=== PATIENT | female | born 1940 | race Caucasian/White ===

== ENCOUNTER 2016-12-08 11:59 | Observation (INO) | payer MEDICARE ==
[~2016-12-08] VITALS: Ht 175.3 cm; Wt 88.4 kg
[~2016-12-08 11:59] MED LIST: ASPI-973 PO; CALCIO DEL MAR; CHOL10008 PO; FISH OIL 500 M1 EAC2 PO; MULT-1018 PO; TRAZ150T72 PO; TRIA0.1220 PO; VALS1TAB5 PO
[2016-12-08 12:05] VITALS: BP 156/96; PULSE 88; RESP 16; O2SAT 96
[2016-12-08] MEDS ORDERED: CALC600T12 PO (12:09)
--- NOTE | 2016-12-08 12:26 | ED.REPORT ---
HPI-Extremity Problem Lower Date of Service Dec 08, 2016 ED Provider: Jossue Dinh PA-C Bing is an otherwise healthy 76-year-old female presenting to the emergency department with chief complaint of a blood clot in her left leg. Patient reports a one-week history of swelling in her left lower extremity. She discussed this with her primary care provider who ordered an ultrasound which was positive for DVT. She reports a two-week history of upper respiratory symptoms including cough, rhinorrhea, dyspnea with exertion which is resolving. Denies hemoptysis, chest pain, palpitations, loss of consciousness, fever, chills. Denies history of stroke, intracranial bleeding. Nursing Notes Stated Complaint: BLOD CLOT LT LEG Chief Complaint: Extremity Trauma Nursing Notes Reviewed: Yes Allergies: Coded Allergies: No Known Allergies (Unverified , 12/08/16) Scheduled Aspirin (Aspirin) 81 Mg Tablet 81 MG PO DAILY Calcium Carbonate (Calcium) 600 Mg Tablet 1,200 MG PO DAILY Cholecalciferol (Vitamin D3) (Vitamin D3) 1,000 Unit Tab.chew 1,000 UNIT PO DAILY Multivitamin (Multi Vitamin Daily) 1 Each Tablet 1 EACH PO DAILY [place] Oil/[place]-3 Fatty Acids (Fish Oil 500 mg Softgel) 1 Each Capsule 1 EACH PO DAILY Valsartan/Hydrochlorothiazide (Diovan Hct 160-12.5 mg Tab) 1 Each Tablet 1 EACH PO BID General Time Seen by MD: 12:15 Chief Complaint Other (left leg DVT) Past Medical History Past Medical History Denies Smoking History Former Smoker Review of Systems Review of Systems Note: Negative unless stated otherwise in history of present illness Physical Exam General: Well appearing, well developed, well nourished, no acute distress. Left le+ pitting edema to the knee. Diameter notably greater than right. DP and PT pulses are not palpated. Foot is warm, capillary refill <3 seconds in distal phalanges. Head: Atraumatic, normocephalic. Eyes: No scleral icterus or injection. No discharge. Vision grossly intact. ENT: Voice clear, hearing grossly intact. Respiratory: Regular rate and rhythm. Breath sounds present, clear to auscultation and equal bilaterally. No respiratory distress. No increased work of breathing, speaks in complete sentences. Cardiovascular: Regular rate and rhythm, without murmur, gallop or rub. Skin: Warm and dry. Neurological: Grossly nonfocal. Psychological: Alert and oriented. Speech appropriate, linear and logical. Behavior appropriate. Initial Vital Signs Vital Signs (First) Date Time Temp Pulse Resp B/P Pulse Ox O2 Delivery O2 Flow Rate FiO2 12/08/16 12:05 36.4 88 16 156/96 96 Room Air Interpretation & Diagnostics Interpretation & Diagnostics: PROCEDURE: CT ANGIO CHEST PULMONARY EMBOLISM ([id number]) INDICATIONS: DVT, shortness of breath IMPRESSION: 1. Bilateral pulmonary emboli, most prominent in the left lower lobe, without definite evidence of right heart strain of this time. 2. Peripheral areas of consolidation in the left lower lobe suggestive of developing pulmonary infarcts given the associated filling defects within these vascular territories. Small peripheral areas of nonspecific consolidation are also noted in the left lingula which may represent infarcts, infection, or atelectasis. Lab Results Interpretation Result Diagram: 12/08/16 1310 12/08/16 1310 Test 12/08/16 13:10 White Blood Count 11.4th/mm3 (3.8-10.1) Red Blood Count 4.62mil/mm3 (3.90-5.20) Hemoglobin 13.1g/dL (12.0-15.6) Hematocrit 39.6% (35.0-46.0) Mean Corpuscular Volume 85.7fL (81-100) Mean Corpuscular Hemoglobin 28.4pg (27.0-35.0) Mean Corpuscular Hemoglobin Concent 33.1% (32.0-37.0) Red Cell Distribution Width 14.2% (12.3-15.4) Platelet Count 526bil/L (150-400) Prothrombin Time 10.0sec (8.1-12.5) Prothromb Time International Ratio 0.94ratio Sodium Level 135mEq/L (134-144) Potassium Level 3.8mEq/L (3.5-5.2) Chloride Level 95mEq/L (97-108) Carbon Dioxide Level 26mmol/L (18-29) Blood Urea Nitrogen 21mg/dL (8-27) Creatinine 1.09mg/dL (0.57-1.00) Estimat Glomerular Filtration Rate 70mL/min (>59) Glucose Level 91mg/dL (60-99) Calcium Level 9.8mg/dL (8.5-10.1) Total Bilirubin 0.5mg/dL (0.0-1.2) Aspartate Amino Transf (AST/SGOT) 25U/L (0-50) Alanine Aminotransferase (ALT/SGPT) 31U/L (0-32) Alkaline Phosphatase 151U/L (25-165) Total Protein 7.9g/dL (6.4-8.4) Albumin 4.0g/dL (3.4-5.0) US Soft Tissue/Musculoskeletal PROCEDURE: US VEINOUS LEG DUPLEX UNILATERAL, LEFT INDICATIONS: LLE VENOUS SWELLING IMPRESSION: Occlusive DVT of the left lower extremity. Exam Performed by: Radiologist Re-Eval/Medical Decision Med Decision/Clinical Course Otherwise healthy 76-year-old female resents after being diagnosed with a DVT in her left lower extremity on ultrasound at the urgent care. Patient reports a one-week history of leg swelling. Patient additionally reports a two-week history of upper respiratory symptoms including nasal congestion, rhinorrhea, cough, MARTINEZ. Reports feeling short of breath walking to the emergency department. Physical examination reveals a notably swollen left leg. PT and DP pulses are not palpated, however the foot is warm with brisk capillary refill. Vital signs are normal. I discussed the case with Dr. Garza, who recommends CT angio chest to rule out PE. Her Wells score is 3. Patient is given Lovenox 1 mg/kg, warfarin [address] returned positive for pulmonary emboli bilaterally. I discussed the case with Dr. Ellington, who accepts admission. Patient is transferred to the floor in stable condition. Consultation : Referral / Consult Name: Roula Ellington MD Call Returned at: 15:53 Boatswain Mate: Accepts admit Discharge & Departure Impression: Primary Impression: Pulmonary emboli Pulmonary embolism type: other Chronicity: acute Acute cor pulmonale presence: without acute cor pulmonale Qualified Code: I26.99 - Other pulmonary embolism without acute cor pulmonale Additional Impression: Left leg DVT Affected thrombotic vein of extremity: unspecified vein of extremity Chronicity: acute Qualified Code: I82.402 - Acute embolism and thrombosis of unspecified deep veins of left lower extremity Disposition: ADMITTED TO HOSPITAL Referrals: Rafal Godwin DO (PCP) EDSupervising Provider for APC: Martin Garza MD, Seth PA-C Dec 08, 2016 12:26
[2016-12-08 13:29] LABS: Mean Corpuscular Hemoglobin 28.4 pg (27.0-35.0); Mean Corpuscular Volume 85.7 fL (81-100)
--- NOTE | 2016-12-08 15:26 | DRSVH ---
PROCEDURE: CT ANGIO CHEST PULMONARY EMBOLISM ([id number]) INDICATIONS: DVT, shortness of breath TECHNIQUE: After the administration of intravenous contrast, 2 mm thick sections acquired from the pulmonary api aidee to the posterior costophrenic angles. 3-dimensional maximum intensity projection (MIP) coronal a nd sagittal reformats were then acquired through the thorax. For radiation dose reduction, the follo wing was used: automated exposure control, adjustment of mA and/or kV according to patient size. COMPARISON: None. FINDINGS: Image quality: Excellent. Pulmonary arteries: There are multiple bilateral filling defects consistent with pulmonary embolism. These include thrombus within the left main pulmonary artery distally extending into shoes segmenta l and subsegmental branches in the upper and lower lobes, most prominent in the left lower lobe. The re is also segmental and subsegmental nonocclusive thrombus within the right upper, middle, and lower lobes. There is borderline enlargement of the main pulmonary artery. No definite leftward septal d eviation. Lungs and pleura: There are peripheral areas of consolidation in the left lower lobe corresponding t o the distribution of pulmonary emboli suggestive of developing pulmonary infarcts. There are also s mall areas of nonspecific peripheral consolidation in the left lingula. Bilateral dependent atelecta sis is present. There are bilateral groundglass opacities also noted with mild septal thickening sug gesting mild edema. There is a minimal left pleural effusion. No pneumothorax. Central and periphe ral airways are patent. Mediastinum: Heart size is enlarged, without pericardial effusion. There is coronary arterial vascu lar calcification. No mediastinal or hilar adenopathy. Thoracic aorta is normal in caliber and enha ncement. Esophagus is normal in caliber, without hiatal hernia. Bones and chest wall: No suspicious bony lesions. Ribs and thoracic spine appear intact throughout. No axillary or supraclavicular adenopathy. Abdomen: Visualized upper abdomen demonstrates colonic diverticulosis. IMPRESSION: 1. Bilateral pulmonary emboli, most prominent in the left lower lobe, without definite evidence of r ight heart strain of this time. 2. Peripheral areas of consolidation in the left lower lobe suggestive of developing pulmonary infar cts given the associated filling defects within these vascular territories. Small peripheral areas o f nonspecific consolidation are also noted in the left lingula which may represent infarcts, infectio n, or atelectasis. Findings discussed with Shellie Ramos on 12/08/16 at 3:15 PM. Dictated by: Rafal Astudillo M.D. on 12/08/2016 at 15:07 Approved by: Rafal Astudillo M.D. on 12/08/2016 at 15:24
[2016-12-08] MEDS ORDERED: Polyethylene Glycol (PEG) 17 Gm Powder PO PRN (16:05)
[2016-12-08] MEDS ORDERED: Alum-Mag Hydrox-Simeth 30 mL Suspension PO PRN (16:05)
[2016-12-08] MEDS ORDERED: Ondansetron 2 mg/mL 2 mL Inj IVPUSH PRN (16:05)
--- NOTE | 2016-12-08 16:16 | PCM.HPMED ---
Subjective Date of Service Dec 08, 2016 Primary Provider: Admitting Physician: Primary Care Physician: Rafal Godwin DO Attending Physician: Admit Status: From the Emergency Department, Remote Telemetry Chief Complaint: Left leg swelling with increased shortness of breath History of Present Illness: 76-year-old female who presents with one-week history of increasing left lower leg swelling. She does note that about 2-1/2 weeks ago she had upper respiratory infection in thought she was fairly mobile but only stayed around the house and did not do her usual activities at that time. She called her primary care provider [facility] in to urgent care here at [facility]. Ultrasound was done as an outpatient and was positive for occlusive DVT of left lower extremity. There is intraluminal filling defects involving the common femoral vein, femoral vein and popliteal vein. Femoral vein and popliteal veins are occluded. In the emergency room they did do a CTA of chest because of her increased shortness of breath and this revealed bilateral pulmonary emboli most prominent left lower lobe. There was no definite evidence of right heart strain. She has no prior history of blood clot disorders. There is no family history of blood clotting disorders.. Review of Systems: Patient denies any chest pain, denies any nausea or vomiting. Denies any alteration in bowel movements. Denies any fevers chills or cough. All other review of systems are reviewed and are negative except for as in history of present illness. Allergies Coded Allergies: No Known Allergies (Unverified , 12/08/16) Home Medications Scheduled Aspirin (Aspirin) 81 Mg Tablet 81 MG PO DAILY Calcium Carbonate (Calcium) 600 Mg Tablet 1,200 MG PO DAILY Cholecalciferol (Vitamin D3) (Vitamin D3) 1,000 Unit Tab.chew 1,000 UNIT PO DAILY Multivitamin (Multi Vitamin Daily) 1 Each Tablet 1 EACH PO DAILY [place] Oil/[place]-3 Fatty Acids (Fish Oil 500 mg Softgel) 1 Each Capsule 1 EACH PO DAILY Valsartan/Hydrochlorothiazide (Diovan Hct 160-12.5 mg Tab) 1 Each Tablet 1 EACH PO BID PMH Hypertension Surgical History History of bunionectomy 2 years ago Family History Father with a history of CVA in his late 60s Social History Hx Alcohol Use: No Hx Substance Use: No Smoking Status: Former Smoker Living Arrangement: with Family (this with who is 95 years old) Exam Vital Signs Vital Sign - Last Date Time Temp Pulse Resp B/P Pulse Ox O2 Delivery O2 Flow Rate FiO2 12/08/16 12:05 36.4 88 16 156/96 96 Room Air Exam Constitutional: 76-year-old female who looks younger than her stated age Head: Normocephalic atraumatic Neck: carotids 2+ over 4 without bruits Chest: Clear to auscultation Cor: Regular rate and rhythm S1-S2 without murmur Abdomen: Soft nontender bowel sounds present Extremities: Left leg has 2+ edema to just above the knee with some slight diffuse erythema noted, right leg has no edema Skin: No rashes Psych: Mood and affect appropriate Neuro: Alert and oriented 3, motor strength is intact bilaterally Lab and Diagnostics Labs Laboratory Tests 72 Hours Test 12/08/16 13:10 White Blood Count 11.4th/mm3 (3.8-10.1) Red Blood Count 4.62mil/mm3 (3.90-5.20) Hemoglobin 13.1g/dL (12.0-15.6) Hematocrit 39.6% (35.0-46.0) Mean Corpuscular Volume 85.7fL (81-100) Mean Corpuscular Hemoglobin 28.4pg (27.0-35.0) Mean Corpuscular Hemoglobin Concent 33.1% (32.0-37.0) Red Cell Distribution Width 14.2% (12.3-15.4) Platelet Count 526bil/L (150-400) Sodium Level 135mEq/L (134-144) Potassium Level 3.8mEq/L (3.5-5.2) Chloride Level 95mEq/L (97-108) Carbon Dioxide Level 26mmol/L (18-29) Blood Urea Nitrogen 21mg/dL (8-27) Creatinine 1.09mg/dL (0.57-1.00) Estimat Glomerular Filtration Rate 70mL/min (>59) Glucose Level 91mg/dL (60-99) Calcium Level 9.8mg/dL (8.5-10.1) Total Bilirubin 0.5mg/dL (0.0-1.2) Aspartate Amino Transf (AST/SGOT) 25U/L (0-50) Alanine Aminotransferase (ALT/SGPT) 31U/L (0-32) Alkaline Phosphatase 151U/L (25-165) Total Protein 7.9g/dL (6.4-8.4) Albumin 4.0g/dL (3.4-5.0) Result Diagram: 12/08/16 1310 12/08/16 1310 X-Rays, CTs and MRIs PROCEDURE: CT ANGIO CHEST PULMONARY EMBOLISM ([id number]) INDICATIONS: DVT, shortness of breath TECHNIQUE: After the administration of intravenous contrast, 2 mm thick sections acquired from the pulmonary apices to the posterior costophrenic angles. 3-dimensional maximum intensity projection (MIP) coronal and sagittal reformats were then acquired through the thorax. For radiation dose reduction, the following was used: automated exposure control, adjustment of mA and/or kV according to patient size. COMPARISON: None. FINDINGS: Image quality: Excellent. Pulmonary arteries: There are multiple bilateral filling defects consistent with pulmonary embolism. These include thrombus within the left main pulmonary artery distally extending into shoes segmental and subsegmental branches in the upper and lower lobes, most prominent in the left lower lobe. There is also segmental and subsegmental nonocclusive thrombus within the right upper, middle , and lower lobes. There is borderline enlargement of the main pulmonary artery. No definite leftward septal deviation. Lungs and pleura: There are peripheral areas of consolidation in the left lower lobe corresponding to the distribution of pulmonary emboli suggestive of developing pulmonary infarcts. There are also small areas of nonspecific peripheral consolidation in the left lingula. Bilateral dependent atelectasis is present. There are bilateral groundglass opacities also noted with mild septal thickening suggesting mild edema. There is a minimal left pleural effusion. No pneumothorax. Central and peripheral airways are patent. Mediastinum: Heart size is enlarged, without pericardial effusion. There is coronary arterial vascular calcification. No mediastinal or hilar adenopathy. Thoracic aorta is normal in caliber and enhancement. Esophagus is normal in caliber, without hiatal hernia. Bones and chest wall: No suspicious bony lesions. Ribs and thoracic spine appear intact throughout. No axillary or supraclavicular adenopathy. Abdomen: Visualized upper abdomen demonstrates colonic diverticulosis. IMPRESSION: 1. Bilateral pulmonary emboli, most prominent in the left lower lobe, without definite evidence of right heart strain of this time. 2. Peripheral areas of consolidation in the left lower lobe suggestive of developing pulmonary infarcts given the associated filling defects within these vascular territories. Small peripheral areas of nonspecific consolidation are also noted in the left lingula which may represent infarcts, infection, or atelectasis. Findings discussed with Shellie Ramos on 12/08/16 at 3:15 PM. Dictated by: Rafal Astudillo M.D. on 12/08/2016 at 15:07 Approved by: Rafal Astudillo M.D. on 12/08/2016 at 15:24 12-lead ECG Pending at the time this dictation Assessment & Plan # Acute pulmonary emboli left lower lobe with left leg DVT, acute, present on admission -Patient was started on therapeutic subcutaneous Lovenox and will continue and given a dose of Coumadin and will have him see continue dosing Coumadin -We will try to arrange for outpatient therapeutic Lovenox until patient is therapeutic with Coumadin -Placed on telemetry -Check echocardiogram -For possible that she was more mobile than usual because of her upper respiratory infection which led to DVT # Hypertension, chronic, present on admission -Monitor blood pressures -Continue with current medication regimen # DVT prophylaxis -Patient is on therapeutic Lovenox # CODE STATUS -Full code VTE Prophylaxis Indicated: VTE on Admission Resuscitation Status: CPR: Attempt Resuscitation Time spent 60 minutes Roula Ellington MD Dec 08, 2016 16:16
[2016-12-08 16:30] VITALS: BP 133/75; PULSE 75; RESP 18; O2SAT 96
[2016-12-08 16:44] LABS: INR 0.94 ratio
[2016-12-08 17:40] VITALS: BP 133/75; PULSE 75; RESP 18; O2SAT 96
[2016-12-08 18:15] VITALS: BP 174/93; PULSE 79; RESP 18; O2SAT 95
[2016-12-08 18:48] VITALS: PULSE 89
--- NOTE | 2016-12-08 19:29 | NUR ---
Admit: Jerrod was brought to [facility] from the ER at 181. Patient stated that she is not having pain. Her Left leg has pitting edema. Patient is in her bed with her left leg propped up on pillows. Patient stated that she is not experiencing shortness of breath at this time . She is able to ambulate to the BR without feeling short of breath. Patient was oriented to her call light caregivers and room. Part of patients admit questions were answered . Report was given to oncoming nurse.
[2016-12-08] MEDS ORDERED: FISH1CAP15 PO (19:30)
[2016-12-08 20:15] VITALS: BP 149/83; PULSE 73; RESP 16; O2SAT 94
[2016-12-08] MEDS ORDERED: VALSARTAN PO SCH (20:30)
[2016-12-08] MEDS ORDERED: [UNRECOGNIZED DRUG - OTHER] PO SCH (20:30)
[2016-12-08] MEDS ORDERED: HYDROCHLOROTHIAZIDE PO SCH (20:30)
[2016-12-08 20:38] LABS: APPEARANCE,URINE CLEAR (CLEAR,HAZY); COLOR,URINE YELLOW (YELLOW); OCCULT BLOOD,URINE TRACE (NEGATIVE); UROBILINOGEN,URINE NORMAL (NORMAL)
--- NOTE | 2016-12-08 20:50 | PCM.CONPHA ---
Assessment/Plan Assessment/Plan ANTICOAGULATION MANAGEMENT BY PHARMACY -INDICATION: DVT/PE -HOME DOSE: NEW START -CONCURRENT ANTICOAGULATION: LOVENOX 80 MG BID -CRCL: 48.5 ML/MIN -COAG TRENDS: Date INR 0.94 -[id number] SCORE: 4 PLAN: Bridging with Lovenox to therapeutic INR for treatment of DVT/PE. New start so will give 5 mg and follow trends with daily dosing. Pharmacy appreciates consult and will continue to monitor. THANKS! Ivet Gallegos PharmD Dec 08, 2016 20:49
[2016-12-09 00:14] VITALS: BP 162/82; PULSE 79; RESP 18; O2SAT 93
[2016-12-09 05:08] VITALS: BP 163/83; PULSE 77; RESP 18; O2SAT 94
--- NOTE | 2016-12-09 05:12 | NUR ---
chills/insomnia/Lovenox pt c/o chills around midnight. Temp was 36.9, skin warm to touch. tylenol given with good relief. chills went away, skin now cooler. Pt called this RN again at this time because she's having chills again. temp was 36.8 Tylenol given. will closely monitor for effectiveness. Pt requested sleeping aid. Pt said she was taking trazodone 50mcg PRN at home. Rec'd an order and med given. pt reported she still had little sleep. Lovenox was given at 0230. Pt half asleep so she's unable to give the Lovenox to herself. RN administered Lovenox shot to pt's abdomen; tolerated well. no s/s of bleeding.
[2016-12-09 06:28] VITALS: PULSE 77
[2016-12-09 06:40] LABS: INR 0.97 ratio
[2016-12-09 08:00] VITALS: PULSE 76
[2016-12-09 09:40] VITALS: BP 160/94; PULSE 92; RESP 18; O2SAT 93
--- NOTE | 2016-12-09 10:16 | DRSVH ---
[facility] [address] [place] [address] Echocardiogram Report Name: Dom CHUNG PStudy Date: 12/09/2016 Height: 69 in Hospital Exam Location: [facility] Weight: 19 5 lb Gender: Female BSA: 2.0 m2 : 1940 Age: 76 yrs BP: 163/83 mmHg Reason For Study: PULMONARY EMBOLI Ordering Physician: HOSPITALIST [facility] Performed By: Asha Hadley Referring Physician: Vinnie Raymundo Interpretation Summary The left ventricle is borderline hyperdynamic with the ejection fraction visually estimated to be 70-75% with no focal wall motion abnormalities. Assessment of diastolic parameters indicates a relaxation abnormality of the left ventricle, consistent with normal filling pressures. The right ventricle is not well visualized but grossly appears normal in size and right ventricular systolic function is likely at the lower limits of normal. The right ventricular systolic pressure is estimated to be at least 30 mmHg assuming a right atrial pressure of 3 mm Hg, but could be higher. Both atria are normal in size. There is no significant valvular heart disease. The ascending aorta and aortic arch are mildly enlarged. Procedure: A two-dimensional transthoracic echocardiogram with color flow and Doppler was performed. The study quality was technically adequate. There is no prior echocardiogram noted for this patient. The patient was in normal sinus rhythm during the exam. Left Ventricle: The left ventricle is normal in size. There is mild proximal septal thickening noted. The left ventricle is borderline hyperdynamic. The ejection fraction is estimated to be 70-75%. There are no focal wall motion abnormalities. Assessment of diastolic parameters indicates a relaxation abnormality of the left ventricle, consistent with normal filling pressures. Right Ventricle: The right ventricle is not well visualized. The right ventricle is grossly normal size. Right ventricular systolic function is at the lower limits of normal. Atria: Both atria are normal in size. There is no Doppler evidence for an interatrial shunt. Mitral Valve: There is mild mitral annular calcification. The mitral valve leaflets appear thickened, but open well. There is no mitral regurgitation noted. Aortic Valve: The aortic valve is trileaflet. The aortic valve is slightly calcified. The aortic valve opens well. There is no aortic valve stenosis. No aortic regurgitation is present. Tricuspid Valve: The tricuspid valve is normal. There is trace tricuspid regurgitation. The right ventricular systolic pressure is estimated at least 30 mmHg assuming a right atrial pressure of 3 mm Hg. Pulmonic Valve: The pulmonic valve leaflets are thin and pliable; valve motion is normal. There is a trace or physiologic amount of pulmonic regurgitation. There is no significant valvular heart disease. Great Vessels: The aortic root is normal size. The ascending aorta is mildly enlarged. The aortic arch is mildly enlarged. The pulmonary is not well visualized. The IVC is of normal diameter and collapses greater than 50% with a sniff. This suggests a low right atrial pressure of 3 mm Hg. Pericardium/ Pleura There is no pericardial effusion. There is no pleural effusion. MMode/2D Measurements & Calculations LVIDd: 4.1 cm LVIDs: 2.3 cm LA A2 area: 19.1 cm FS: 43.7 % LA A4 area: 21.3 cm EPSS: 0.28 cm LA length (vol): 5.6 cm IVSd: 1.2 cm LA vol: 61.1 ml LVPWd: 0.95 cm LA vol index: 29.9 ml/m IVC diam: 1.1 cm RA long axis: 5.3 cm LVOT diam: 1.7 cm RA area: 18.2 cm AoV Openin.9 cm RA vol: 53.0 ml Ao root diam: 3.5 cm RA : 25.9 ml/m2 asc Aorta Diam: 3.6 cm Ao Arch Diam (Prox Trans): 3.3 cm LV kurtz. diameter/BSA (cm/m^2): 2.0 LV sys. diameter/BSA (cm/m^2): 1.1 RVD1 (basal): 3.0 cm RVD2 (mid): 2.8 cm TAPSE: 2.9 cm Doppler Measurements & Calculations Ao V2 max: 149.2 cm/sec MV E max rajinder: 71.2 cm/sec Ao max P.9 mmHg MV A max rajinder: 109.3 cm/sec Ao mean P.5 mmHg MV P1/2t: 64.6 msec LVOT Max Rajinder: 99.7 cm/sec ZACHARY(I,D): 1.6 cm sev ratio: 0.66 MV E/A: 0.65 TR max rajinder: 260.1 cm/sec Med Peak E' Rajinder: 5.1 cm/sec TR max P.1 mmHg E/E' med: 14.1 PA V2 max: 83.3 cm/sec Lat Peak E' Rajinder: 6.0 cm/sec PA mean P.7 mmHg E/E' lat: 11.9 E/e' average: 13.0 MV dec time: 0.22 sec MV P1/2t max rajinder: 70.9 cm/sec MVA(P1/2t): 3.4 cm2 Ao V2 mean: 114.2 cm/sec LV V1 max P.0 mmHg Ao V2 VTI: 32.9 cm LV V1 VTI: 21.8 cm ZACHARY(V,D): 1.6 cm2 PA V2 mean: 62.2 cm/sec ZACHARY indexed to BSA (cm^2/m^2): 0.78 PA pr(Accel): 39.2 mmHg Reading Physician:10:15 AM
--- NOTE | 2016-12-09 11:18 | NUR ---
Social Work-initial assessment/multidisciplinary rounds: Data:See initial assessment. Pt is a 76 y/o female who was admitted on 12/08/16 for PE and DVT per H&P. Pt's insurance is [employer] and PCP is aRfal Godwin DO. EMR Reviewed. Pt's readmission score is 1. SW met with pt at bedside, SW role explained. Pt is alert and oriented x3. Pt resides at home with her on [address] where she remains independent with ADLS. Pt drives and does not use any DME. Pt has no HH or SNF history. Pt has no penitentiary care insurance or VA benefits. SW discussed DPOA/ advanced directive, pt has completed this, SW encouraged a copy to be brought in. No concern noted around pt's capacity for self care from MD presto log operator. Pt has been up independent in his room. SW provided pt with a discharge planning checklist and encouraged with any questions, phone number provided on white board in room. Pt's sister to provide transport home. No discharge needs identified. SW will continue to follow if needs arise. Assessment:Pt who is independent at baseline. Plan:Pt to discharge home when medically stable via POV. No discharge needs identified. SW will continue to follow if needs arise. OBED Vogel Addendum: 12/09/16 at 1126 by KALPESH CABALLERO Amended: Links added.
--- NOTE | 2016-12-09 11:36 | PCM.PHAPRO ---
Progress Left leg swelling with increased shortness of breath Warfarin new start. Indication: DVT/PE INR goal: 2-3 Date Dec 09-Nov INR 0.94 0.97 INR change 0.03 Warf Dose 5 MG 5MG A/P: * Anticipate 5 days before INR is at or near goal * On enoxaparin 1mg/kg (80mg) Q 12h Nayana Vasquez Pharm.D Dec 09, 2016 11:36
--- NOTE | 2016-12-09 13:13 | PCM.DIMED ---
Discharge Instructions Date of Service Dec 09, 2016 Dates of Hospitalization Dec 08, 2016 at 17:02 Discharge Diagnosis Discharge Diagnosis 1. Acute pulmonary emboli left lower lobe, improved 2. Left leg DVT, improved. 3. Essential Hypertension, stable. Diet Discharge Diet: No restrictions Activity Discharge Activity: Limited until seen by PCP Call your provider Call your provider for: Fever or Chills, Shortness of breath, Chest pain Patient Instructions Follow-up Provider: Rafal Godwin DO Follow-up with PCP in: 1 week Yasmany Mccain MD Dec 09, 2016 13:13
[2016-12-09] MEDS ORDERED: LOV80 SUBQ (13:14)
[2016-12-09] MEDS ORDERED: Influenza (Adult) Vaccine 0.5 mL Syringe IM ONE (13:15)
[2016-12-09] MEDS ORDERED: WARF5TAB PO (13:15)
--- NOTE | 2016-12-09 13:49 | NUR ---
Social Work-discharge: Data:EMR Reviewed. Pt is on day 1 of hospitalization for PE per H&P. Pt is medically stable for discharge. Pt has been up independent in her room. Pt's follow up PCP appointment made by JENNY. No concerns regarding pt's capacity for self care from MD breakdown worker. Pt confirms her sister will be providing transport home today. No other SW needs identified. All updated and agreeable to plan. Assessment:Pt who is independent at baseline. Plan:Pt to discharge home today via POV. No other SW needs identified. All updated and agreeable to plan. OBED Vogel
--- NOTE | 2016-12-09 14:34 | NUR ---
Discharge Pt was educated on diagnosis, new meds, and future care. Understands when her appt is and where it is. Demonstrated understanding of all teaching. Pt demonstrated injecting her own Lovenox without any issues. Pt received flu vaccination prior to leaving. Pt and RN signed last page of discharge packet. Tele leads were removed, IV was removed. Pt left with all personal belongings and scripts from the MD. Pt was escorted down to vehicle by a staff member.
--- NOTE | 2016-12-09 16:50 | PCM.DC.MED ---
Discharge Summary Date of Service Dec 09, 2016 Dates of Hospitalization Date of Hospital Admission Dec 08, 2016 at 17:02 Date of Discharge: Dec 09, 2016 Providers: Admitting Physician: Roula Ellington MD Primary Care Physician: Rafal Godwin DO Attending Physician: Yasmany Hassan MD Diagnosis at Time of Discharge Diagnosis at Time of Discharge 1. Acute pulmonary emboli left lower lobe, improved 2. Left leg DVT, improved. 3. Essential Hypertension, stable. Procedures XRay, CTs & MRIs PROCEDURE: CT ANGIO CHEST PULMONARY EMBOLISM ([id number]) INDICATIONS: DVT, shortness of breath TECHNIQUE: After the administration of intravenous contrast, 2 mm thick sections acquired from the pulmonary apices to the posterior costophrenic angles. 3-dimensional maximum intensity projection (MIP) coronal and sagittal reformats were then acquired through the thorax. For radiation dose reduction, the following was used: automated exposure control, adjustment of mA and/or kV according to patient size. COMPARISON: None. FINDINGS: Image quality: Excellent. Pulmonary arteries: There are multiple bilateral filling defects consistent with pulmonary embolism. These include thrombus within the left main pulmonary artery distally extending into shoes segmental and subsegmental branches in the upper and lower lobes, most prominent in the left lower lobe. There is also segmental and subsegmental nonocclusive thrombus within the right upper, middle , and lower lobes. There is borderline enlargement of the main pulmonary artery. No definite leftward septal deviation. Lungs and pleura: There are peripheral areas of consolidation in the left lower lobe corresponding to the distribution of pulmonary emboli suggestive of developing pulmonary infarcts. There are also small areas of nonspecific peripheral consolidation in the left lingula. Bilateral dependent atelectasis is present. There are bilateral groundglass opacities also noted with mild septal thickening suggesting mild edema. There is a minimal left pleural effusion. No pneumothorax. Central and peripheral airways are patent. Mediastinum: Heart size is enlarged, without pericardial effusion. There is coronary arterial vascular calcification. No mediastinal or hilar adenopathy. Thoracic aorta is normal in caliber and enhancement. Esophagus is normal in caliber, without hiatal hernia. Bones and chest wall: No suspicious bony lesions. Ribs and thoracic spine appear intact throughout. No axillary or supraclavicular adenopathy. Abdomen: Visualized upper abdomen demonstrates colonic diverticulosis. IMPRESSION: 1. Bilateral pulmonary emboli, most prominent in the left lower lobe, without definite evidence of right heart strain of this time. 2. Peripheral areas of consolidation in the left lower lobe suggestive of developing pulmonary infarcts given the associated filling defects within these vascular territories. Small peripheral areas of nonspecific consolidation are also noted in the left lingula which may represent infarcts, infection, or atelectasis. Findings discussed with Shellie Ramos on 12/08/16 at 3:15 PM. Dictated by: Rafal Astudillo M.D. on 12/08/2016 at 15:07 Approved by: Rafal Astudillo M.D. on 12/08/2016 at 15:24 ECG 12 Lead Unremarkable. Invasive Procedures None Brief History 76-year-old female who presents with one-week history of increasing left lower leg swelling. She does note that about 2-1/2 weeks ago she had upper respiratory infection in thought she was fairly mobile but only stayed around the house and did not do her usual activities at that time. She called her primary care provider [facility] in to urgent care here at [facility]. Ultrasound was done as an outpatient and was positive for occlusive DVT of left lower extremity. There is intraluminal filling defects involving the common femoral vein, femoral vein and popliteal vein. Femoral vein and popliteal veins are occluded. In the emergency room they did do a CTA of chest because of her increased shortness of breath and this revealed bilateral pulmonary emboli most prominent left lower lobe. There was no definite evidence of right heart strain. She has no prior history of blood clot disorders. There is no family history of blood clotting disorders.. Hospital Course 1. Acute pulmonary emboli left lower lobe, improved. She was admitted and placed on Lovenox for pulmonary embolism. An echo was unremarkable and showed no evidence of strain. She was not hypoxic and her general dyspnea on exertion improved overnight. On the day of discharge she strongly requested discharge home and felt that she could provide herself Lovenox injections twice a day and agreed to close follow-up within 5 days to schedule regional clinic in [place] with a pro time. 2. Left leg DVT, improved. Her left leg edema improved by about 50% wall on the hospital she had minimal pain with degenerative discharge. 3. Essential Hypertension, stable. This remained stable while in the hospital. Exam Vital Signs (Last) Date Time Temp Pulse Resp B/P Pulse Ox O2 Delivery O2 Flow Rate FiO2 9/28/17 09:40 36.9 92 18 160/94 93 Room Air Exam The patient was seen and examined on the day of discharge. She was felt to be medically stable for discharge. Test 12/08/16 13:10 12/08/16 19:49 12/09/16 05:48 White Blood Count 11.4th/mm3 (3.8-10.1) Red Blood Count 4.62mil/mm3 (3.90-5.20) Hemoglobin 13.1g/dL (12.0-15.6) Hematocrit 39.6% (35.0-46.0) Mean Corpuscular Volume 85.7fL (81-100) Mean Corpuscular Hemoglobin 28.4pg (27.0-35.0) Mean Corpuscular Hemoglobin Concent 33.1% (32.0-37.0) Red Cell Distribution Width 14.2% (12.3-15.4) Platelet Count 526bil/L (150-400) Sodium Level 135mEq/L (134-144) Potassium Level 3.8mEq/L (3.5-5.2) Chloride Level 95mEq/L (97-108) Carbon Dioxide Level 26mmol/L (18-29) Blood Urea Nitrogen 21mg/dL (8-27) Creatinine 1.09mg/dL (0.57-1.00) Estimat Glomerular Filtration Rate 70mL/min (>59) Glucose Level 91mg/dL (60-99) Calcium Level 9.8mg/dL (8.5-10.1) Total Bilirubin 0.5mg/dL (0.0-1.2) Aspartate Amino Transf (AST/SGOT) 25U/L (0-50) Alanine Aminotransferase (ALT/SGPT) 31U/L (0-32) Alkaline Phosphatase 151U/L (25-165) Total Protein 7.9g/dL (6.4-8.4) Albumin 4.0g/dL (3.4-5.0) Urine Color Yellow (YELLOW) Urine Appearance Clear (CLEAR,HAZY) Urine pH 6.0 (5.0-8.0) Urine Specific [place] 1.005 (1.003-1.035) Urine Protein Negativemg/dL (NEG,TRACE) Urine Glucose (UA) Negativemg/dL (NEGATIVE) Urine Ketones Negativemg/dL (NEGATIVE) Urine Occult Blood Trace (NEGATIVE) Urine Nitrite Negative (NEGATIVE) Urine Bilirubin Negative (NEGATIVE) Urine Urobilinogen Normalmg/dL (NORMAL) Urine Leukocyte Esterase Negative (NEGATIVE) Urine RBC 0-2/hpf (0-2) Urine WBC 0-5/hpf (0-5) Urine Epithelial Cells None/hpf (NONE-MOD) Urine Crystals None seen (NONE SEEN) Urine Bacteria None/hpf (NONE-FEW) Urine Hyaline Casts None/lpf (NONE) Urine Granular Casts None seen (NONE SEEN) Urine Waxy Casts None seen (NONE SEEN) Urine Red Blood Cell Casts None seen (NONE SEEN) Urine White Blood Cell Casts None seen (NONE SEEN) Urine Mucus None seen (None Seen) Urine Trichomonas None seen (NONE SEEN) Urine Yeast None (NONE SEEN) Urinalysis Comment None Urine Culture Reflexed Not indicated Prothrombin Time 10.4sec (8.1-12.5) Prothromb Time International Ratio 0.97ratio Discharge Medications Discharge Medications Aspirin (Aspirin) 81 Mg Tablet 81 MG PO DAILY (Reported) Calcium Carbonate (Calcium) 600 Mg Tablet 1,200 MG PO DAILY (Reported) Cholecalciferol (Vitamin D3) (Vitamin D3) 1,000 Unit Tab.chew 1,000 UNIT PO DAILY (Reported) Enoxaparin (Lovenox) 80 Mg/0.8 Ml Syringe 80 MG SUBQ Q12H Prescribed by: YASMANY HASSAN MD Fish Oil/Dha/Epa (Fish Oil 1,200 mg Fish Oil) 1 Each Capsule 1 EACH PO DAILY ( Reported) Multivitamin (Multi Vitamin Daily) 1 Each Tablet 1 EACH PO DAILY (Reported) Valsartan/Hydrochlorothiazide (Diovan Hct 160-12.5 mg Tab) 1 Each Tablet 1 EACH PO BID (Reported) Warfarin Sodium (Coumadin) 5 Mg Tablet 5 MG PO DAILY@17 Prescribed by: YASMANY HASSAN MD Followup Plan Disposition: Home Follow-up plan She will see her doctor next Tuesday at 940 in the morning. The appointment was made for her. At that time she'll require a pro time to assure that she is therapeutic and then can stop taking the Lovenox. Discharge Diet: No restrictions Discharge Activity: Limited until seen by PCP Follow-up Provider: Cevetello,Rafal J. DO Follow-up with PCP in: 1 week Time spent 35 minutes Yasmany Hassan MD Dec 09, 2016 16:50
== END 2016-12-09 14:48 | disposition home or self-care (01) ==
LOC: SED 11:59 → MPC 17:02 → INTOOBSV 17:02
PROVIDERS: ADMIT Specialist; ATTEND Specialist
DX: I26.99 Other pulmonary embolism without acute cor pulmonale (principal); I82.412 Acute embolism and thrombosis of left femoral vein; I82.432 Acute embolism and thrombosis of left popliteal vein; I10 Essential (primary) hypertension; Z79.82 Long term (current) use of aspirin; Z87.891 Personal history of nicotine dependence; Z23 Encounter for immunization
CPT/HCPCS: 36415; 71275; 80053; 81000; 85027; 85610; 90471; 90674; 96372; 99285; C8929; G0378; J1650; Q9967